=== PATIENT | male | born 1980 | race Caucasian/White ===

== ENCOUNTER → 2017-02-27 | Outpatient (CLI) | payer OTHER ==
--- NOTE | 2017-02-27 21:36 | MR ---
EXAMINATION TYPE: MR thoracic spine wo con DATE OF EXAM: 02/27/2017 8:13 PM COMPARISON: NONE HISTORY: THORACIC PAIN per order. Extreme mid back pain for 5 years per patient. TECHNIQUE: Multiplanar, multisequence imaging of thoracic spine is performed without contrast FINDINGS:Spinal cord shows normal course, caliber, and signal as it courses the thoracic spine. Vert ebral body heights are satisfactory. Spine is straightened on sagittal images. Disc space heights are fairly well-maintained. There are posterior disc herniations effacing anterior thecal sac at T5-T6, T8-T9, and most prominent at T9-T10 level on sagittal images. Bone marrow signal intensity is preserv ed. No significant spurring is noted. Axial images at T1-T2 level show small left paracentral disc protrusion mildly effacing anterolateral thecal sac on axial image 18 series 701, bilateral neural foramina are patent. Axial images at T5-T6 level confirm central disc protrusion mildly effacing anterior thecal sac nearl y up to ventral surface of spinal cord on axial image 5, bilateral neural foramina are patent. Axial images at T8-T9 level show broad-based left paracentral disc protrusion effacing anterior theca l sac, with mild left-sided neural foraminal narrowing due to marginal spurring, right-sided neural f oramen is patent and axial image 15 series 601. Axial images at T9-T10 level show broad-based left paracentral disc protrusion effacing anterior thec al sac and causing mild to moderate left-sided neural foraminal narrowing on image 11 series 601, rig ht-sided neural foramen is patent. Disc herniation extends up to ventral surface of spinal cord. Remainder axial levels are felt within normal limits. IMPRESSION: Straightening of thoracic spine with multilevel degenerative changes seen, most prominent disc herniation is noted at T9-T10 level. Further details are noted as discussed above.
== END | disposition home or self-care (01) ==
LOC: RADMRIMAIN 19:27
PROVIDERS: ATTEND Psychiatry & Neurology Neurology
DX: M51.24 Other intervertebral disc displacement, thoracic region (principal); M47.814 Spondylosis without myelopathy or radiculopathy, thoracic region
CPT/HCPCS: 72146

== ENCOUNTER 2024-09-01 12:14 | Observation (INO) | payer OTHER ==
--- NOTE | 2024-09-01 12:51 | ED ---
General Adult HPI - General Source: patient, RN notes reviewed Mode of arrival: ambulatory Limitations: no limitations <Zuleika Santoro - Last Filed: 09/01/24 12:49> - General Source: patient, RN notes reviewed Mode of arrival: ambulatory Limitations: no limitations <Chava Hernandez - Last Filed: 09/01/24 16:49> - General Chief complaint: Recheck/Abnormal Lab/Rx Stated complaint: mass in rectal area Time Seen by Provider: 09/01/24 12:31 - History of Present Illness Initial comments: Quick note-this is a 43-year-old male presents emergency department chief complaint of a mass in his groin located between his testicles and anus that has been becoming worsening we painful and enlarging over the past 6 days. States that yesterday began to experience nausea, vomiting, fevers and chills. Denies any drainage from the area. Endorses constipation. Patient states that approximately 8 years ago he had a "cancer scare "of a mass in a similar region he was diagnosed with a lymphoma. Denies history of cancer. (Zuleika Santoro) Patient is a 43-year-old male presenting to the emergency department with concern for swelling. Swelling started in the perineal area however has moved more towards the anal region. Patient has significant discomfort. Patient has had some fevers the last day or 2. (Chava Hernandez) - Related Data Allergies Allergy/AdvReac Type Severity Reaction Status Date / Time No Known Allergies Allergy Verified 09/01/24 12:19 Review of Systems ROS Other: All systems not noted in ROS Statement are negative. <Zuleika Santoro - Last Filed: 09/01/24 12:49> ROS Other: All systems not noted in ROS Statement are negative. Constitutional: Reports: as per HPI, fever Eyes: Denies: eye pain ENT: Denies: ear pain Respiratory: Denies: dyspnea Cardiovascular: Denies: chest pain Endocrine: Denies: fatigue Genitourinary: Reports: as per HPI Skin: Reports: as per HPI <Chava Hernandez - Last Filed: 09/01/24 16:49> ROS Statement: Those systems with pertinent positive or pertinent negative responses have been documented in the HPI. Past Medical History Additional Past Medical History / Comment(s): neck injury History of Any Multi-Drug Resistant Organisms: None Reported Past Surgical History: Joint Replacement, Orthopedic Surgery Past Psychological History: No Psychological Hx Reported Smoking Status: Current every day smoker Past Alcohol Use History: Occasional Past Drug Use History: Marijuana <Zuleika Santoro - Last Filed: 09/01/24 12:49> General Exam Limitations: no limitations <Zuleika Santoro - Last Filed: 09/01/24 12:49> Limitations: no limitations General appearance: alert, in no apparent distress Head exam: Present: normocephalic Eye exam: Present: normal appearance Neck exam: Present: normal inspection Respiratory exam: Present: normal lung sounds bilaterally Cardiovascular Exam: Present: tachycardia GI/Abdominal exam: Present: soft. Absent: tenderness Rectal exam: Present: mass (. Rectal mass with significant tenderness), tenderness Extremities exam: Present: normal inspection Neurological exam: Present: alert Psychiatric exam: Present: normal affect, normal mood Skin exam: Present: other (Perirectal swelling with mild erythema) <Chava Hernandez - Last Filed: 09/01/24 16:49> - General Exam Comments Initial Comments: Visual Physical Exam Vital signs reviewed General: Well-appearing, nontoxic, no acute distress. Head: Normocephalic, atraumatic Eyes: PERRLA, EOMI ENT: Airway patent Chest: Nonlabored breathing Skin: No visual rash, normal skin tone Neuro: Alert and oriented 3 Musculoskeletal: No gross abnormalities (Zuleika Santoro) Course Vital Signs 09/01/24 12:17 Temperature 97.8 F Pulse Rate 111 H Respiratory 20 Rate Blood Pressure 156/101 O2 Sat by Pulse 99 Oximetry Medical Decision Making <Zuleika Santoro - Last Filed: 09/01/24 12:49> - Lab Data Result diagrams: 09/01/24 13:50 09/01/24 13:50 <Chvaa Hernandez - Last Filed: 09/01/24 16:49> - Medical Decision Making I completed the quick note portion of this chart signed Zuleika Santoro PA-C (Zuleika Santoro) Was pt. sent in by a medical professional or institution ([facility], HEMATOLOGY TECHNOLOGIST, urgent care, hospital, or group home...) When possible be specific @ -No Did you speak to anyone other than the patient for history (EMS, parent, family, police, friend...)? What history was obtained from this source @ -No Did you review nursing and triage notes (agree or disagree)? Why? @ -I reviewed and agree with nursing and triage notes Were old charts reviewed (outside hosp., previous admission, EMS record, old EKG, old radiological studies, urgent care reports/EKG's, group home records)? Report findings @ -No old charts were reviewed Differential Diagnosis (chest pain, altered mental status, abdominal pain women, abdominal pain men, vaginal bleeding, weakness, fever, dyspnea, syncope, headache, dizziness, GI bleed, back pain, seizure, CVA, palpatations, mental health, musculoskeletal)? @ -Differential Fever: Pneumonia, viral URI, endocarditis, myocarditis, pericarditis, otitis, sinusitis, peritonsillar Abscess, retropharyngeal Abscess, epiglottitis, peritonitis, appendicitis, [place] cystitis, diverticulitis, hepatitis, colitis, UTI, PID, TOA, pyelonephritis, prostatitis, epididymitis, meningitis, encephalitis, pulmonary embolism, CVA, thyroid storm, pancreatitis, adrenal crisis, cavernous sinus thrombosis, this is not meant to be an all-inclusive list. EKG interpreted by me (3pts min.). @ -As above X-rays interpreted by me (1pt min.). @ -None done CT interpreted by me (1pt min.). @ -CT scan concerning for a perirectal abscess up to 2.2 cm U/S interpreted by me (1pt. min.). @ -None done What testing was considered but not performed or refused? (CT, X-rays, U/S, labs)? Why? @ -Cultures will be added What meds were considered but not given or refused? Why? @ -IV antibiotics will be Did you discuss the management of the patient with other professionals (professionals i.e. , PA, HEMATOLOGY TECHNOLOGIST, lab, RT, psych nurse, social work lecturer, lay out technician, teacher, foreign policy officer, registered nurse hh case manager)? Give summary @ -Discussed with Dr. Mckeon who will admit for surgical call Was smoking cessation discussed for >3mins.? @ -No Was critical care preformed (if so, how long)? @ -31 minutes critical care time Were there social determinants of health that impacted care today? How? (Ho melessness, low income, unemployed, alcoholism, drug addiction, transportation, low edu. Level, literacy, decrease access to med. care, prison, rehab)? @ -No Was there de-escalation of care discussed even if they declined (Discuss DNR or withdrawal of care, Hospice)? DNR status @ -No What co-morbidities impacted this encounter? (DM, HTN, Smoking, COPD, CAD, Cancer, CVA, ARF, Chemo, Hep., AIDS, mental health diagnosis, sleep apnea, morbid obesity)? @ -None Was patient admitted / discharged? Hospital course, mention meds given and route, prescriptions, significant lab abnormalities, going to OR and other pertinent info. @ -Patient presents with clinical and radiological evidence for pararectal abscess. Patient will be admitted for surgery. There is concern for sepsis diagnosed at 1648, blood culture, lactic acid, and IV antibiotics will be added Undiagnosed new problem with uncertain prognosis? @ -No Drug Therapy requiring intensive monitoring for toxicity (Heparin, Nitro, Insulin, Cardizem)? @ -No Were any procedures done? @ -No Diagnosis/symptom? @ -Perirectal abscess Acute, or Chronic, or Acute on Chronic? @ -Acute Uncomplicated (without systemic symptoms) or Complicated (systemic symptoms)? @ -Complicated with sepsis Side effects of treatment? @ -No Exacerbation, Progression, or Severe Exacerbation? @ -No Poses a threat to life or bodily function? How? (Chest pain, [place], [place], pneumonia, PE, COPD, DKA, ARF, appy, cholecystitis, CVA, Diverticulitis, Homicidal, Suici abby, threat to staff... and all critical care pts) @ -No (Chava Hernandez) - Lab Data Lab Results 09/01/24 09/01/24 09/01/24 Range/Units 13:50 13:50 13:50 WBC 13.5 H (3.8-10.6) k/uL RBC 4.77 (4.30-5.90) m/uL Hgb 15.5 (13.0-17.5) gm/dL Hct 45.8 (39.0-53.0) % MCV 96.2 (80.0-100.0) fL MCH 32.5 (25.0-35.0) pg MCHC 33.8 (31.0-37.0) g/dL RDW 12.1 (11.5-15.5) % Plt Count 291 (150-450) k/uL MPV 7.6 Neutrophils % 76 % Lymphocytes % 15 % Monocytes % 5 % Eosinophils % 2 % Basophils % 0 % Neutrophils # 10.3 H (1.3-7.7) k/uL Lymphocytes # 2.0 (1.0-4.8) k/uL Monocytes # 0.7 (0-1.0) k/uL Eosinophils # 0.2 (0-0.7) k/uL Basophils # 0.1 (0-0.2) k/uL Sodium 138 (137-145) mmol/L Potassium 4.6 (3.5-5.1) mmol/L Chloride 109 H (98-107) mmol/L Carbon Dioxide 22 (22-30) mmol/L Anion Gap 7 mmol/L BUN 9 (9-20) mg/dL Creatinine 0.70 (0.66-1.25) mg/dL Est GFR (CKD-EPI)AfAm >90 (>60 ml/min/1.73 sqM) Est GFR (CKD-EPI)NonAf >90 (>60 ml/min/1.73 sqM) Glucose 96 (74-99) mg/dL Plasma Lactic Acid Mark 1.0 (0.7-2.0) mmol/L Calcium 9.7 (8.4-10.2) mg/dL Total Bilirubin 1.0 (0.2-1.3) mg/dL AST 30 (17-59) U/L ALT 25 (4-49) U/L Alkaline Phosphatase 51 (38-126) U/L C-Reactive Protein 8.7 H (<1.0) mg/dL Total Protein 7.1 (6.3-8.2) g/dL Albumin 4.4 (3.5-5.0) g/dL Critical Care Time Critical Care Time: Yes Total Critical Care Time: 31 <Chava Hernandez - Last Filed: 09/01/24 16:49> Disposition <Zuleika Santoro - Last Filed: 09/01/24 12:49> Is patient prescribed a controlled substance at d/c from ED?: No Time of Disposition: 16:49 <Chava Hernandez - Last Filed: 09/01/24 16:49> Clinical Impression: Perirectal abscess Disposition: ADMITTED IP TO THIS HOSP Referrals: Risa Gomes MD [Primary Care Provider] - 1-2 days
[2024-09-01 14:10] LABS: Basophils # (A) 0.1 k/uL (0-0.2); Basophils % (A) 0 %; Eosinophils # (A) 0.2 k/uL (0-0.7); Eosinophils % (A) 2 %; HCT 45.8 % (39.0-53.0); HGB 15.5 gm/dL (13.0-17.5); Lymphocytes % (A) 15 %; MCH 32.5 pg (25.0-35.0); MCHC 33.8 g/dL (31.0-37.0); MCV 96.2 fL (80.0-100.0); Mean Platelet Volume 7.6; Monocytes # (A) 0.7 k/uL (0-1.0); Monocytes % (A) 5 %; Neutrophils # (A) 10.3 k/uL (1.3-7.7); Neutrophils % (A) 76 %; Platelet Count 291 k/uL (150-450); RBC 4.77 m/uL (4.30-5.90); RDW 12.1 % (11.5-15.5); WBC 13.5 k/uL (3.8-10.6)
[2024-09-01 14:18] LABS: ALT 25 U/L (4-49); African American GFR (CKD) >90 (>60 ml/min/1.73 sqM); Albumin 4.4 g/dL (3.5-5.0); Anion Gap 7 mmol/L; Blood Urea Nitrogen 9 mg/dL (9-20); C Reactive Protein 8.7 mg/dL (<1.0); Calcium 9.7 mg/dL (8.4-10.2); Carbon Dioxide 22 mmol/L (22-30); Chloride 109 mmol/L (98-107); Glucose 96 mg/dL (74-99); Non-African American GFR(CKD) >90 (>60 ml/min/1.73 sqM); Sodium 138 mmol/L (137-145); Total Protein 7.1 g/dL (6.3-8.2)
[2024-09-01 14:22] LABS: AST 30 U/L (17-59); Alkaline Phosphatase 51 U/L (38-126); Potassium 4.6 mmol/L (3.5-5.1)
--- NOTE | 2024-09-01 15:43 | CT ---
EXAMINATION TYPE: CT abdomen pelvis w con DATE OF EXAM: 09/01/2024 COMPARISON: None INDICATION: mass in genital region, pain, N/V/F DLP: 1283.1 mGycm, Automated exposure control for dose reduction was used. CONTRAST: 100ml mL of Isovue 370. Study performed without Oral Contrast TECHNIQUE: Axial images were obtained from above the diaphragm to the pubic rami in the axial plane a t 5 mm thick sections. Reconstructed images are reviewed on the computer in the coronal plane. FINDINGS: Limited CT sections are obtained the lung bases. The lung bases are clear. CT ABDOMEN: Liver: Normal Spleen: Normal Pancreas: Normal Adrenal glands: The adrenal glands are normal. Gallbladder: Normal Kidneys: No masses are evident. No hydronephrosis is present. No cysts are present. Delayed images were obtained through the kidneys, which remain unremarkable. Aorta: Normal Inferior vena cava: Normal. CT PELVIS: There is inflammatory change in the perineal region adjacent to the anus. A perianal absce ss measuring 2.2 cm may be present. Series 201 image 99. In the coronal plane small fingerlike extens ion beyond the abscess appear to be present in the perirectal region Loops of bowel within the abdomen and pelvis are normal. This study is without oral contrast limi ting Bowl evaluation. Appendix: Not identified. No dilated tubular structure or inflammatory change is evident. Urinary bladder: Normal. Genitourinary structures: Prostate is normal. Osseous structures: No suspicious lytic or sclerotic lesions. IMPRESSION: 1. Complex perianal abscess with adjacent inflammatory changes. Largest area measures 2.2 cm. [facility], Workstation: [facility], 09/01/2024 3:40 PM
[2024-09-01] MEDS ORDERED: HYDROmorphone 0.5 MG/0.5 ML SYRINGE IVP PRN (16:50)
[2024-09-01] MEDS ORDERED: ACETAMINOPHEN TAB 325 MG TAB PO PRN (16:50)
[2024-09-01] MEDS ORDERED: NALOXONE 0.4 MG/ML 1 ML VIAL IV PRN (16:50)
[2024-09-01] MEDS: HYDROmorphone 1 MG/ML 1 ML SYRINGE IVP STA (17:05)
[2024-09-01] MEDS: SODIUM CHLORIDE 0.9% 1,000 ML IV SCH (17:30)
[2024-09-01] MEDS: IV FLUID CONTINUATION 1,000 ML IV ONE (17:40)
--- NOTE | 2024-09-01 17:52 | P.GSHP ---
History of Present Illness H&P Date: 09/01/24 This is a 43-year-old male presents emergency department chief complaint of a mass in his groin located between his testicles and anus that has been becoming worsening we painful and enlarging over the past 6 days. States that yesterday began to experience nausea, vomiting, fevers and chills. Denies any drainage from the area. Endorses constipation. Patient states that approximately 8 years ago he had a "cancer scare "of a mass in a similar region he was diagnosed with a lymphoma. Denies history of cancer. CT-AP shows a perirectal abscess Review of Systems ROS Other: All systems not noted in ROS Statement are negative. ROS Other: All systems not noted in ROS Statement are negative. Constitutional: Reports: as per HPI, fever Eyes: Denies: eye pain ENT: Denies: ear pain Respiratory: Denies: dyspnea Cardiovascular: Denies: chest pain Endocrine: Denies: fatigue Genitourinary: Reports: as per HPI Skin: Reports: as per HPI ROS Statement: Those systems with pertinent positive or pertinent negative responses have been documented in the HPI. Past Medical History Additional Past Medical History / Comment(s): neck injury History of Any Multi-Drug Resistant Organisms: None Reported Past Surgical History: Joint Replacement, Orthopedic Surgery Past Psychological History: No Psychological Hx Reported Smoking Status: Current every day smoker Past Alcohol Use History: Occasional Past Drug Use History: Marijuana General Exam Limitations: no limitations Limitations: no limitations General appearance: alert, in no apparent distress Head exam: Present: normocephalic Eye exam: Present: normal appearance Neck exam: Present: normal inspection Respiratory exam: Present: normal lung sounds bilaterally Cardiovascular Exam: Present: tachycardia GI/Abdominal exam: Present: soft. Absent: tenderness Rectal exam: Present: mass (. Rectal mass with significant tenderness), tenderness Extremities exam: Present: normal inspection Neurological exam: Present: alert Psychiatric exam: Present: normal affect, normal mood Skin exam: Present: other (Perirectal swelling with mild erythema) 43 year old male with perirectal abscess -Incision and Drainage of perirectal abscess in OR today -[facility] [phone] Past Medical History Additional Past Medical History / Comment(s): neck injury History of Any Multi-Drug Resistant Organisms: None Reported Past Surgical History: Joint Replacement, Orthopedic Surgery Past Psychological History: No Psychological Hx Reported Smoking Status: Current every day smoker Past Alcohol Use History: Occasional Past Drug Use History: Marijuana Medications and Allergies Home Medications Medication Instructions Recorded Confirmed Type Cyclobenzaprine [Flexeril] 5 mg PO TID PRN 09/01/24 09/01/24 History Hydrocodone/Acetaminophen 1 tab PO TID PRN 09/01/24 09/01/24 History [Hydrocodone/Acetaminophen 7.5-325] Ibuprofen [Motrin] 800 mg PO TID PRN 09/01/24 09/01/24 History Ketorolac [Toradol] 10 mg PO TID PRN 09/01/24 09/01/24 History Meloxicam 7.5 - 15 mg PO DAILY 09/01/24 09/01/24 History Allergies Allergy/AdvReac Type Severity Reaction Status Date / Time No Known Allergies Allergy Verified 09/01/24 17:33 Surgical - Exam Vital Signs Temp Pulse Resp BP Pulse Ox 97.8 F 111 H 20 156/101 99 09/01/24 12:17 09/01/24 12:17 09/01/24 12:17 09/01/24 12:17 09/01/24 12:17 Results - Labs 09/01/24 13:50 09/01/24 13:50 Abnormal Lab Results - Last 24 Hours (Table) 09/01/24 09/01/24 Range/Units 13:50 13:50 WBC 13.5 H (3.8-10.6) k/uL Neutrophils # 10.3 H (1.3-7.7) k/uL Chloride 109 H (98-107) mmol/L C-Reactive Protein 8.7 H (<1.0) mg/dL Diabetes panel 09/01/24 Range/Units 13:50 Sodium 138 (137-145) mmol/L Potassium 4.6 (3.5-5.1) mmol/L Chloride 109 H (98-107) mmol/L Carbon Dioxide 22 (22-30) mmol/L BUN 9 (9-20) mg/dL Creatinine 0.70 (0.66-1.25) mg/dL Glucose 96 (74-99) mg/dL Calcium 9.7 (8.4-10.2) mg/dL AST 30 (17-59) U/L ALT 25 (4-49) U/L Alkaline Phosphatase 51 (38-126) U/L Total Protein 7.1 (6.3-8.2) g/dL Albumin 4.4 (3.5-5.0) g/dL Calcium panel 09/01/24 Range/Units 13:50 Calcium 9.7 (8.4-10.2) mg/dL Albumin 4.4 (3.5-5.0) g/dL Pituitary panel 09/01/24 Range/Units 13:50 Sodium 138 (137-145) mmol/L Potassium 4.6 (3.5-5.1) mmol/L Chloride 109 H (98-107) mmol/L Carbon Dioxide 22 (22-30) mmol/L BUN 9 (9-20) mg/dL Creatinine 0.70 (0.66-1.25) mg/dL Glucose 96 (74-99) mg/dL Calcium 9.7 (8.4-10.2) mg/dL Adrenal panel 09/01/24 Range/Units 13:50 Sodium 138 (137-145) mmol/L Potassium 4.6 (3.5-5.1) mmol/L Chloride 109 H (98-107) mmol/L Carbon Dioxide 22 (22-30) mmol/L BUN 9 (9-20) mg/dL Creatinine 0.70 (0.66-1.25) mg/dL Glucose 96 (74-99) mg/dL Calcium 9.7 (8.4-10.2) mg/dL Total Bilirubin 1.0 (0.2-1.3) mg/dL AST 30 (17-59) U/L ALT 25 (4-49) U/L Alkaline Phosphatase 51 (38-126) U/L Total Protein 7.1 (6.3-8.2) g/dL Albumin 4.4 (3.5-5.0) g/dL
[2024-09-01] MEDS ORDERED: KETOROLAC 15 MG/ML 1 ML VIAL ONE (18:01)
[2024-09-01] MEDS ORDERED: fentaNYL (PF) 50 MCG/ML 2 ML AMP ONE (18:01)
[2024-09-01] MEDS ORDERED: MIDAZOLAM 2 MG/2 ML VIAL ONE (18:01)
[2024-09-01] MEDS ORDERED: PROPOFOL 10 MG/ML 20 ML VIAL IV ONE (18:01)
[2024-09-01] MEDS ORDERED: LIDOCAINE 1% INJ 10MG/ML (20 ML MDV) ONE (18:01)
[2024-09-01] MEDS ORDERED: HYDROmorphone (PF) 1 MG/ML ONE (18:01)
[2024-09-01] MEDS: AMPICILLIN-SULBACTAM 3 GM in SODIUM CHLORIDE 0.9% 100 ML IVPB SCH (18:03)
[2024-09-01] MEDS: BUPIVACAINE (PF) 0.25% 30 ML VIAL SQ ONE (18:25)
[2024-09-01] MEDS ORDERED: HYDROmorphone 1 MG/ML 1 ML SYRINGE IVP PRN (18:32)
[2024-09-01] MEDS ORDERED: HYDROcodone/APAP 10-325MG 1 EACH TAB PO PRN (18:33)
--- NOTE | 2024-09-01 18:42 | P.OP ---
Date of Procedure: 09/01/24 Preoperative Diagnosis: Perirectal Abscess Postoperative Diagnosis: Perirectal Abscess Procedure(s) Performed: 1. Rectal Exam Under Anesthesia 2. Incision and Drainage Perirectal Abscess Anesthesia: MAC Surgeon: Kobe Quevedo Estimated Blood Loss (ml): 10 Pathology: other (Cultures Sent-Abscess) Condition: stable Disposition: PACU Description of Procedure: The patient was brought to operating suite. Anesthesia was given and LMA anesthesia was performed. The patient was placed in Lithotomy Position. A timeout was performed prior to beginning the procedure. The patient was prepped and draped in normal sterile fashion. A timeout was performed before the procedure was started. A rectal exam was performed and fluctuance was noted in the perirectal region the patient's left side. No other masses were appreciated. A #15 blade was used to make an incision over the fluctance. There was purulent fluid immediately noted. Cultures were taken. A hemostat was used to break up the loculations and completely drain the abscess. 1% Lidocaine was injected around the incision. 1 inch iodoform packing was used to pack the wound. Sterile dressing was applied. This concluded the procedure. The patient tolerated the procedure well and was sent to the PACU in stable con dition.
[2024-09-01] MEDS ORDERED: IBUPROFEN 800 MG TAB PO PRN (22:19)
[2024-09-01] MEDS ORDERED: NON FORMULARY DRUG (Ketorolac 10 MG Tab) PO PRN (22:19)
[2024-09-01] MEDS ORDERED: CYCLOBENZAPRINE 5 MG TAB PO PRN (22:19)
[2024-09-01] MEDS ORDERED: HYDROcodone/APAP 7.5-325MG 1 EACH TAB PO PRN (22:19)
--- NOTE | 2024-09-01 22:44 | P.CONS ---
History of Present Illness - Reason for Consult Consult date: 09/01/24 Medical management Requesting physician: Kobe Quevedo - History of Present Illness Patient is a 43-year-old male who presented to the ED because of a mass in the groin. He mentioned the mass was painful and enlarging over the past 6 days. He also started experiencing nausea, vomiting, fever and chills. ED workup revealed CRP 8.7, CT of the abdomen and pelvis that showed a perirectal abscess. The patient underwent incision and drainage of the perirectal abscess earlier today. The patient seems to be doing well after the surgery. He has not had a bowel movement or passed gas after the surgery but has urinated once. Denies fever, chills, nausea, vomiting, abdominal pain, chest pain, shortness of breath. He mentions having neck injury as a child but did not get treated for that at the time. He now has chronic neck pain. He usually takes on meloxicam and [place] for the pain and if it doesn't resolve he would use cyclobenzaprine or toradol and sometimes also gets epidural shots for the pain. Vitals: Pulse 81 bpm, respiration 16, BP 129/74, O2 96% on room air ED documentation reviewed. Review of systems: Pertinent positives and negatives as discussed in HPI, a complete review of systems was performed and all other systems are negative. PMH: Neck injury PSH: None FMH: None Allergies: None Social history: Tobacco: Current smoker 18 cigarettes a day for 26 years Alcohol: Occasional Recreational drugs: Occasionally edible Gummies for pain Travel: No recent travel history Sick contacts: None Occupation: [employer] Therapist Physical examination: Vital signs reviewed General: non toxic, no distress, appears at stated age, obese Derm: no unusual rashes/lesions, warm Head: atraumatic, normocephalic, symmetric Eyes: EOMI, anicteric sclera ENT: Nose and ears atraumatic Mouth: no lip lesion, mucus membranes moist Cardiovascular: S1S2 reg, no murmur,no peripheral edema Lungs: CTA bilateral, no rhonchi, no rales, no accessory muscle use Abdominal: soft, nontender to palpation, no guarding Ext: no gross muscle atrophy, no contractures, Neuro: CN II-XI grossly intact, no gross focal neuro deficits Psych: Alert, oriented, appropriate affect Assessment/Plan: Patient is a 43-year-old male who presented to the ED for mass in the perianal area which was found to be perirectal abscess for which he underwent incision and drainage. We have been consulted for medical management #. Chronic neck pain secondary to neck injury Patient on [place] and Dilaudid PRN after surgery Hold home meds #. Reactive Leukocytosis WBC 13.5 Blood culture and wound culture ordered Monitor CBC #. s/p Incision and drainage of the perirectal abscess Unasyn 3gm IVPB Q8HR Pain management deferred to primary surgical team F: 0.9 normal saline 130 mL/h E: Replete as required N: Regular diet A: Ambulatory DVT prophylaxis: Defer to primary surgical team GI prophylaxis: Protonix 40 mg IV daily Past Medical History Additional Past Medical History / Comment(s): neck injury History of Any Multi-Drug Resistant Organisms: None Reported Past Surgical History: Joint Replacement, Orthopedic Surgery Past Psychological History: No Psychological Hx Reported Smoking Status: Current every day smoker Past Alcohol Use History: Occasional Past Drug Use History: Marijuana Medications and Allergies Home Medications Medication Instructions Recorded Confirmed Type Cyclobenzaprine [Flexeril] 5 mg PO TID PRN 09/01/24 09/01/24 History Hydrocodone/Acetaminophen 1 tab PO TID PRN 09/01/24 09/01/24 History [Hydrocodone/Acetaminophen 7.5-325] Ibuprofen [Motrin] 800 mg PO TID PRN 09/01/24 09/01/24 History Ketorolac [Toradol] 10 mg PO TID PRN 09/01/24 09/01/24 History Meloxicam 7.5 - 15 mg PO DAILY 09/01/24 09/01/24 History Allergies Allergy/AdvReac Type Severity Reaction Status Date / Time No Known Allergies Allergy Verified 09/01/24 17:33 Physical Exam Vitals: Vital Signs Temp Pulse Pulse Pulse Resp BP BP 09/01/24 19:45 81 16 129/74 09/01/24 19:30 85 16 127/79 09/01/24 19:16 92 16 131/83 09/01/24 18:59 96 16 143/83 09/01/24 18:41 98.7 F 96 16 141/82 09/01/24 17:40 97 F L 105 H 12 133/95 09/01/24 17:34 103 H 20 133/94 09/01/24 12:17 97.8 F 111 H 20 156/101 Pulse Ox 09/01/24 19:45 96 09/01/24 19:30 96 09/01/24 19:16 96 09/01/24 18:59 96 09/01/24 18:41 96 09/01/24 17:40 96 09/01/24 17:34 98 09/01/24 12:17 99 Intake and Output 09/01/24 09/01/24 09/01/24 06:59 14:59 22:59 Intake Total 400 Output Total 5 Balance 395 Intake: IV 400 Output: Estimated Blood Loss 5 Other: Voiding Method Toilet Weight 99.79 kg 99.79 kg Results CBC & Chem 7: 09/01/24 13:50 09/01/24 13:50 Labs: Abnormal Lab Results - Last 24 Hours (Table) 09/01/24 09/01/24 Range/Units 13:50 13:50 WBC 13.5 H (3.8-10.6) k/uL Neutrophils # 10.3 H (1.3-7.7) k/uL Chloride 109 H (98-107) mmol/L C-Reactive Protein 8.7 H (<1.0) mg/dL Assessment and Plan Assessment: I have seen and evaluated the patient today. I Discussed the case with the resident and agree with the resident's findings I edited the assessment and plan as necessary as documented in the resident's note.
[2024-09-01] MEDS: HYDROmorphone 1 MG/ML 1 ML SYRINGE IVP PRN (22:47)
[2024-09-01] MEDS: NICOTINE 7MG/24HR PATCH TRANSDERM STA (23:40)
[2024-09-02 08:53] LABS: Basophils # (A) 0.05 X 10*3/uL (0.00-0.10); Basophils % (A) 0.4 %; Eosinophils % (A) 1.6 %; HCT 41.7 % (39.6-50.0); HGB 13.9 g/dL (13.0-17.0); Lymphocytes # (A) 1.92 X 10*3/uL (0.90-5.00); Lymphocytes % (A) 15.7 %; MCHC 33.3 g/dL (32.0-37.0); Mean Platelet Volume 10.5 FL (9.5-12.2); Monocytes # (A) 1.08 X 10*3/uL (0.20-1.00); Monocytes % (A) 8.8 %; NRBC Per 100 WBC 0 X 10*3/uL (0.00-0.01); Neutrophils # (A) 8.95 X 10*3/uL (1.80-7.70); Platelet Count 248 X 10*3/uL (140-440); RBC 4.21 X 10*6/uL (4.40-5.60); RDW 12.1 % (11.5-14.5); WBC 12.26 X 10*3/uL (4.50-10.00)
[2024-09-02 08:59] LABS: BUN/Creat Ratio 12.25 Ratio (12.00-20.00); Blood Urea Nitrogen 9.8 mg/dL (9.0-27.0); Calcium 8.4 mg/dL (8.7-10.3); Carbon Dioxide 21.2 mmol/L (21.6-31.8); Chloride 107 mmol/L (96-109); Glucose 96 mg/dL (70-110); Potassium 4.5 mmol/L (3.5-5.5); Sodium 139 mmol/L (135-145)
[2024-09-02] MEDS ORDERED: MELOXICAM 7.5 MG TAB PO SCH (09:00)
[2024-09-02] MEDS: PANTOPRAZOLE 40 MG/10 ML VIAL IV SCH (09:18)
--- NOTE | 2024-09-02 11:42 | P.PN ---
Subjective Progress Note Date: 09/02/24 Subjective: Patient seen and examined at bedside. No acute events overnight. Claims that pain is much improved. Patient ambulating and tolerating oral intake. Pertinent positives and negatives as discussed above, a complete review of systems was performed and all other systems are negative. Vitals Signs Reviewed. General: Nontoxic, no distress, appears at stated age Derm: Warm, dry, dressing not observed Head: Atraumatic, normocephalic, symmetric Eyes: EOMI, no lid lag, anicteric sclera Mouth: No lip lesion, mucus membranes moist Cardiovascular: S1S2 reg, no murmur Lungs: CTA bilateral, no rhonchi, no rales, no accessory muscle use Abdominal: Soft, nontender to palpation, no guarding, no appreciable organomegaly Ext: No gross muscle atrophy, no edema, no contractures Neuro: CN II-XI grossly intact, no focal neuro deficits Psych: Alert, oriented, appropriate affect Data Reviewed Today: Pertinent Labs: WBC 12.6, creatinine 0.8 Imaging: No new imaging Assessment and Plan: Perirectal abscess status post I&D Leukocytosis -Continue Unasyn 3 g IV every 8 hours -Pain control with oral Tylenol as needed, Elim as needed, IV Dilaudid as needed, monitor for sedation -Consider discharging on short course of oral antibiotics, possibly Augmentin Chronic pain, neck -Continue Elim, Dilaudid as needed, monitor for sedation DVT ppx: patient ambulatory Patient is medically optimized for discharge Thank you for allowing us to participate in the care of this pleasant patient. Do not hesitate to contact us with questions. Someone can be reached from the [facility] hospitalist group all hours of the day at [phone] or via perfect serve. Objective - Vital Signs Vital signs: Vital Signs Temp 97.9 F 09/02/24 07:51 Pulse 100 09/02/24 07:51 Resp 17 09/02/24 07:51 BP 129/84 09/02/24 07:51 Pulse Ox 95 09/02/24 07:51 FiO2 Intake & Output 09/01/24 09/02/24 09/02/24 18:59 06:59 18:59 Intake Total 400 0 Output Total 5 Balance 395 0 Weight 99.79 kg 99.79 kg Intake: IV 400 0 Output: Estimated Blood Loss 5 Other: Voiding Method Toilet # Voids 1 - Labs CBC & Chem 7: 09/02/24 03:04 09/02/24 03:04 Labs: Abnormal Lab Results - Last 24 Hours (Table) 09/01/24 09/01/24 09/02/24 Range/Units 13:50 13:50 03:04 WBC 13.5 H 12.26 H (3.8-10.6) k/uL RBC 4.21 L (4.40-5.60) X 10*6/uL MCV 99.0 H (80.0-97.0) FL MCH 33.0 H (27.0-32.0) pg Immature Gran # 0.06 H (0.00-0.04) X 10*3/uL Neutrophils # 10.3 H 8.95 H (1.3-7.7) k/uL Monocytes # 1.08 H (0.20-1.00) X 10*3/uL Chloride 109 H (98-107) mmol/L Carbon Dioxide (21.6-31.8) mmol/L Calcium (8.7-10.3) mg/dL C-Reactive Protein 8.7 H (<1.0) mg/dL 09/02/24 Range/Units 03:04 WBC (3.8-10.6) k/uL RBC (4.40-5.60) X 10*6/uL MCV (80.0-97.0) FL MCH (27.0-32.0) pg Immature Gran # (0.00-0.04) X 10*3/uL Neutrophils # (1.3-7.7) k/uL Monocytes # (0.20-1.00) X 10*3/uL Chloride (98-107) mmol/L Carbon Dioxide 21.2 L (21.6-31.8) mmol/L Calcium 8.4 L (8.7-10.3) mg/dL C-Reactive Protein (<1.0) mg/dL
[2024-09-02 14:24] VITALS: BP 126/87; PULSE 101; RESP 16; TEMP 98.4
--- NOTE | 2024-09-02 14:42 | P.DS ---
Providers Date of admission: 09/01/24 16:53 Expected date of discharge: 09/02/24 Attending physician: Kobe Quevedo DO Consults: 09/01/24 18:31 Consult Physician Routine Consulting Provider: Eric Campos Consult Reason/Comments: medical management Do you want consulting provider notified?: Yes Primary care physician: Risa Gomes Hospital Course: Discharge diagnosis 1. Perirectal abscess Hospital course This is a 43-year-old male who presented to the hospital with a perirectal abscess x 6 days. Patient had a CT scan abdomen pelvis that did show a perirectal abscess. Patient is status post incision and drainage of perirectal abscess. Patient reports his pain is improved. He is afebrile. He is tolerating diet. He is up and ambulating. His pain is controlled. He is stable for discharge. Patient will be discharged with oral antibiotics. Please refer to chart for any further details. Physician Director Of Assessment note has been reviewed by physician. Signing provider agrees with the documented findings, assessment, and plan of care. Patient Condition at Discharge: Stable Plan - Discharge Summary Discharge Rx Participant: Yes New Discharge Prescriptions: New Amoxic-Pot Clav 875-125Mg [Augmentin 875-125] 1 tab PO Q12HR 10 Days #20 tab Continue Meloxicam 7.5 - 15 mg PO DAILY Ketorolac [Toradol] 10 mg PO TID PRN PRN Reason: Pain Hydrocodone/Acetaminophen [Hydrocodone/Acetaminophen 7.5-325] 1 tab PO TID PRN PRN Reason: Pain Cyclobenzaprine [Flexeril] 5 mg PO TID PRN PRN Reason: Muscle Spasm Ibuprofen [Motrin] 800 mg PO TID PRN PRN Reason: Pain Discharge Medication List Cyclobenzaprine [Flexeril] 5 mg PO TID PRN 09/01/24 [History] Hydrocodone/Acetaminophen [Hydrocodone/Acetaminophen 7.5-325] 1 tab PO TID PRN 09/01/24 [History] Ibuprofen [Motrin] 800 mg PO TID PRN 09/01/24 [History] Ketorolac [Toradol] 10 mg PO TID PRN 09/01/24 [History] Meloxicam 7.5 - 15 mg PO DAILY 09/01/24 [History] Amoxic-Pot Clav 875-125Mg [Augmentin 875-125] 1 tab PO Q12HR 10 Days #20 tab 09/02/24 [Rx] Follow up Appointment(s)/Referral(s): Risa Gomes MD [Primary Care Provider] - 1-2 days Kobe Quevedo DO [Medical Doctor] - 1 Week Activity/Diet/Wound Care/Special Instructions: No driving while taking [place] Shower daily. No soaking or tub baths for 2 weeks Very light activity until you are reevaluated at your follow up appointment with your surgeon Discharge/Stand Alone Forms: Work/School Release, Work/School Release / Restrict Discharge Disposition: HOME SELF-CARE
== END 2024-09-02 15:00 | disposition home or self-care (01) ==
LOC: EC 12:14 → 6NMEDSUR 16:53 → 4SSUR 17:29
PROVIDERS: ADMIT Surgery; ATTEND Surgery
DX: K61.1 Rectal abscess
CPT/HCPCS: 36415; 80053; 80048; 83605; 85025 ×2; 86140; 87070; 87205; 87075; 74177; G0378 ×3; S4990; J1171 ×2; J0295 ×2; Q9967; J0665; J2470; 87077; 87186; 96374; 99284